=== PATIENT | male | born 1995 | race Caucasian/White ===

== ENCOUNTER 2018-04-21 18:52 | Emergency (ER) | payer SELFPAY ==
[~2018-04-21] VITALS: Ht 175.3 cm; Wt 63.1 kg
[2018-04-21 19:07] VITALS: Ht 175.3 cm; Wt 63.1 kg
[2018-04-22 01:02] VITALS: BP 146/77
== END 2018-04-22 01:02 | disposition home or self-care (01) ==
LOC: ED 18:52
DX: M94.0 Chondrocostal junction syndrome [Tietze] (principal)